=== PATIENT | female | born 2000 | race Caucasian/White ===

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

== ENCOUNTER 2023-09-19 03:43 | Emergency (ER) | payer SELFPAY ==
[~2023-09-19] VITALS: Ht 157.5 cm; Wt 70.0 kg
--- OUTSIDE RECORDS SUMMARY | 2023-09-19 03:46 | XMS ---
PreManage Notification: JODY ARVIZU [employer] Cost Estimator Events No recent Security Events currently on file CRITERIA MET - [facility] - 2 Visits in 30 Days CARE PROVIDERS Rosemary Morel Nurse Practitioner: Family Current PHONE: Unknown RICHIE VARGAS [facility] Current PHONE: Unknown Care Guidelines exist for the following facilities: [facility] Rose Mary ( 09/23/2018 ) Connie VISIT COUNT (12 MO.) 2 [facility] 1 CARLOS Rodriguez Naman TOTAL 3 NOTE: Visits indicate total known visits. ED/UCC VISIT TRACKING (12 MO.) 09/19/2023 03:45 [facility] [place] TYPE: Emergency COMPLAINT: - ALTERED LOC 09/19/2023 02:07 [facility] [place] TYPE: Emergency COMPLAINT: - general DIAGNOSES: - general 12/04/2022 09:30 [facility] [place] TYPE: Emergency DIAGNOSES: - Displacement of intrauterine contraceptive device, initial encounter - Epigastric pain - SENT BY URGENT CARE INPATIENT VISIT TRACKING (12 MO.) No inpatient visits to display in this time frame [email or web address]
[2023-09-19] MEDS ORDERED: SODIUM CHLORIDE 0.9% 1,000 ML IV PRN (04:15)
[2023-09-19] MEDS ORDERED: ONDANSETRON 4 MG HOME.PACK SL ONE (04:15)
[2023-09-19] MEDS ORDERED: ondansetron HCL 4 MG/2 ML VIAL IV ONE (04:15)
[2023-09-19 05:00] VITALS: BP 116/65
== END 2023-09-19 05:01 | disposition home or self-care (01) ==
LOC: ED 03:43
DX: F10.129 Alcohol abuse with intoxication, unspecified (principal)
CPT/HCPCS: 99283; A9270; J7030

== ENCOUNTER 2023-12-02 12:15 | Emergency (ER) | payer BC ==
[~2023-12-02] VITALS: Ht 157.5 cm; Wt 52.0 kg
--- OUTSIDE RECORDS SUMMARY | 2023-12-02 12:17 | XMS ---
PreManage Notification: JODY ARVIZU Security Under [employer] Events No recent Security Events currently on file CRITERIA MET - PDMP CARE PROVIDERS Rosemary Morel Nurse Practitioner: Family Current PHONE: Unknown RICHIE VARGAS [facility] Current PHONE: Unknown [facility] Guidelines exist [facility] the following facilities[facility] Connie VISIT COUNT (12 MO.) [address] [facility] 2 [facility] TOTAL 4 NOTE: Visits indicate total known visits. ED/UCC VISIT TRACKING (12 MO.) 12/02/2023 12:16 [facility] TYPE: Emergency COMPLAINT: - FOREIGN BODY 09/19/2023 03:45 [facility] [place] TYPE: Emergency COMPLAINT: - ALTERED LOC DIAGNOSES: - Alcohol abuse with intoxication, unspecified - Alcohol abuse with intoxication, unspecified 09/19/2023 02:07 [facility] [place] TYPE: Emergency COMPLAINT: - general DIAGNOSES: - general 12/04/2022 09:30 [facility] [place] TYPE: Emergency DIAGNOSES: - Displacement of intrauterine contraceptive device, initial encounter - Epigastric pain - SENT BY URGENT CARE INPATIENT VISIT TRACKING (12 MO.) No inpatient visits to display in this time frame [email or web address]
[2023-12-02] MEDS ORDERED: GABAPENTIN100 MG PO (12:27)
[2023-12-02 12:41] VITALS: BP 116/82
== END 2023-12-02 12:42 | disposition home or self-care (01) ==
LOC: ED 12:15
DX: S31.145A Puncture wound of abdominal wall with foreign body, periumbilic region without penetration into peritoneal cavity, initial encounter (principal); Z91.09 Other allergy status, other than to drugs and biological substances; Z79.899 Other long term (current) drug therapy
CPT/HCPCS: 99282